=== PATIENT | male | born 1980 | race Caucasian/White ===

== ENCOUNTER 2016-09-12 00:45 | Emergency (ER) | payer OTHER ==
[2016-09-12 01:31] VITALS: RESP 16
--- NOTE | 2016-09-12 02:07 | EDPHY ---
H & P Stated Complaint: chin lac vs fall on skateboard, unsure of loc, feels dizzy, "not right." - Personal History Current Tetanus/Diphtheria Vaccine: Yes - Medical/Surgical History Hx Asthma: No Hx Chronic Respiratory Disease: No Hx Diabetes: No Hx Cardiac Disease: No Hx Renal Disease: No Hx Cirrhosis: No Hx Alcoholism: No Hx HIV/AIDS: No Hx Splenectomy or Spleen Trauma: No Other PMH: Splenectomy - Social History Smoking Status: Never smoked Time Seen by Provider: 09/12/16 01:24 HPI/ROS: The chief complaint: Fall with head injury History of present illness: This is a 35-year-old male who presents to the emergency department after sustaining a fall, injuring his head. Patient was riding a skateboard when he fell forward onto his chin. He cut open his chin. He is unsure if he lost consciousness. He states he has felt very dazed since then. He reports having trouble remembering certain events such as the current month and is feeling like he is having recurrent brittany vu. He further reports pain in the left side of his jaw and at the site of the wound. Patient denies other associated signs or symptoms including no report of trauma to or pain in his neck, chest, abdomen, pelvis or extremities. He denies neurologic symptoms such as paresthesias, weakness or paralysis or bowel or bladder dysfunction. His tetanus is up-to-date. Review of systems: A 10 point review of systems was obtained and other than described above was negative (Himanshu Meraz) - Physical Exam Exam: General Appearance: Alert, nontoxic Eyes: PERRLA, EOM intact ENT: No hemotympanum, no Stiles sign, no raccoon eyes Respiratory: Lungs clear to auscultation bilaterally Cardiac: Regular rate and rhythm. Neurological: Alert and oriented x4. Cranial nerves 2-12 grossly intact. Strength and sensation intact and symmetrical. Skin: 1 cm laceration to the mandible, stellate in nature, no foreign bodies noted. No other wounds noted. Musculoskeletal: There is tenderness left TMJ region, the rest of the mandible is unremarkable. Patient is able to open and close his mouth. He has a normal bite. The rest of the head is normocephalic, atraumatic. The spine is nontender to palpation. Patient moving all extremities without difficulty. He is ambulating well. (Himanshu Meraz) Constitutional: Initial Vital Signs Temperature (C) 37.0 C 09/12/16 00:53 Heart Rate 97 09/12/16 00:53 Respiratory Rate 16 09/12/16 00:53 Blood Pressure 117/82 H 09/12/16 00:53 O2 Sat (%) 96 09/12/16 00:53 O2 Delivery Mode Room Air Allergies/Adverse Reactions: Penicillins Allergy (Verified 09/12/16 00:56) Home Medications: Medication Instructions Recorded NK [No Known Home Meds] 09/12/16 Medical Decision Making Procedures: Procedure: Laceration repair. Verbal consent was obtained from the patient. The 1 cm laceration on the chin was anesthetized in the usual fashion. The wound was irrigated, draped and explored to its base with a gloved finger. There were no deep structures involved. No tendon injury was identified. The wound was repaired with 5 0 Prolene, 5 simple interrupted sutures. The wound repair was simple. The procedure was performed by myself. (Himanshu Meraz) ED Course/Re-evaluation: Patient discussed with my secondary supervising physician Dr. Bea Negro. Patient presents to the emergency department after sustaining a mechanical fall. He has a laceration to his chin. He has pain in the left TMJ region. He is complaining of some vague neurologic symptoms. By history and physical exam no evidence of trauma to other parts of the body. He does have a nonfocal neurologic exam. His tetanus is up-to-date. The wound has been cleaned, repaired and dressed. We have discussed pursuing imaging studies to assess his mandible and his head injury. Patient does not want to pursue CT scans out of concern for radiation. He has agreed to get x-rays of the mandible but understands that these are less sensitive than CT scans. A mandibular x-ray appears normal as read by my attending physician. Ultimately patient will be discharged to follow up with ENT and his primary care doctor for recheck. Return precautions are given. (Himanshu Meraz) Differential Diagnosis: Included but not limited to soft tissue injury, bony fracture, concussion, intracranial bleed (Himanshu Meraz) Other Provider: PHYSICIAN DOCUMENTATION: The patient was evaluated and managed by the Physician Icu Registered Nurse. My co- signature indicates that I have reviewed this chart and I agree with the findings and plan of care as documented. I am the secondary supervising physician. I re-evaluated the patient at about 3:00 a.m.. He is feeling much better. His x-rays were reviewed by me and show no obvious fracture. I explained to them that they are not as sensitive as CT scan and they will be reviewed in the morning by the radiologist. He will be discharged home with his . (Bea Negro) Departure - Departure Disposition: Home, Routine, Self-Care Clinical Impression: Head injury, Chin laceration, Injury of mandible Condition: Good Instructions: Care For Your Stitches (ED), Laceration (ED), Head Injury (ED), Acute Wounds (ED) Additional Instructions: Follow-up with your primary care doctor on Tuesday for recheck Please also follow up with an ears Nose and Throat doctor for recheck Stitches to be removed in 7 days If symptoms worsen or new symptoms develop return to the emergency department for recheck Referrals: MALU CHATTERJEE [Primary Care Provider] - As per Instructions Gabby Turner MD [Medical Doctor] - As per Instructions
[2016-09-12 03:44] VITALS: BP 117/67; PULSE 73; TEMP 98.6; O2SAT 93
== END 2016-09-12 03:45 | disposition home or self-care (01) ==
PROC: 0HQ1XZZ Repair Face Skin, External Approach (ICD-10-PCS; principal; 2016-09-12)
DX: S01.81XA Laceration without foreign body of other part of head, initial encounter (principal); S09.93XA Unspecified injury of face, initial encounter; V00.131A Fall from skateboard, initial encounter; Y99.8 Other external cause status; Y93.51 Activity, roller skating (inline) and skateboarding

== ENCOUNTER → 2017-12-20 | Outpatient (CLI) | payer OTHER | LOC: BMCIMAGING 13:49 | PROVIDERS: ATTEND Physician Assistant | DX: M25.561 Pain in right knee (principal) ==